=== PATIENT | female | born 2005 | race Caucasian/White ===

== ENCOUNTER 2024-08-08 17:37 | Emergency (ER) | payer MEDICAID ==
[~2024-08-08] VITALS: Ht 167.6 cm; Wt 61.4 kg
[2024-08-08 17:41] VITALS: TEMP 98
[2024-08-08 18:58] LABS: BILIRUBIN,URINE NEGATIVE (Neg); CLARITY,URINE CLEAR (Clear); COLOR,URINE YELLOW (Yellow); GLUCOSE, URINE NEGATIVE (Neg); KETONES,URINE TRACE mg/dl (Neg); LEUKOCYTE ESTERASE ,URINE NEGATIVE (Neg); NITRITES, URINE NEGATIVE (Neg); OCCULT BLOOD,URINE NEGATIVE (Neg); PH,URINE 5.5 (4.8-8.0); PROTEIN,URINE NEGATIVE (Neg); URINE HCG NEGATIVE (NEG); UROBILINOGEN,URINE 0.2 E.U/dL (0.2-1.0)
[2024-08-08 19:01] LABS: UA COLLECTION TYPE CLN CATCH MIDSTREAM
--- NOTE | 2024-08-08 22:19 | Physician Documentation ---
History of Present Illness ~ Chief Complaint: Abdominal Pain Stated Complaint: ABDOMINAL PAIN Time Seen by MD: 21:42 OK to notify your PCP?: Yes Source: patient Exam Limitations: no limitations HPI 19-year-old female with complaints of pelvic pain starting proximally 2 days ago. Patient has had 1 other episode of this a couple of months ago lasting again 2 days. Patient states at 1st she thought it could be gas or bloating she tried taking Pepcid and Tums without much relief yesterday. The last episode also lasted only 2 days. Patient's only STI history as she had chlamydia once w hen she was split up from her boyfriend who she is currently with now and monogamous. Patient was treated and tested following treatment. Patient had a hormonal IUD recently removed by [facility] about 2 months ago. Her previous episode of similar pain was prior to IUD being removed. Patient denies any dysuria urgency or frequency but does state that the pelvic pain does occur with urination. Patient denies any back pain, vaginal discharge, but does state that for several months she has had pelvic pain during intercourse. Patient denies any history of PID. Timing/Duration: days Quality/Severity: moderate Pain Location: suprapubic Activities at Onset: spontaneous Prior Genitourinary Problem: none Sexual [place] History: single partner Last Menstrual Period: July 27, 2024 ?: no Modifying Factors: Improves with: nothing Associated Symptoms: dysuria, frequency, hematuria, urgency, vaginal bleeding, vaginal discharge Vaginal Discharge: none Lesions: Denies: none, vesicles, ulcer(s), pustules, papules, other Pruritis: none Amount of Bleeding: none Quality of Bleeding: bright red History Of: STD Medication Reconciliation Allergies: Coded Allergies: No Known Allergies (Unverified , 08/08/24) Past Medical History Past Surgical History: no surgical history Review of Systems All Other Systems at this time: Reviewed and Negative Female Genitalia: Reports: pelvic pain Physical Exam Vital Signs: RN Vital Signs have been reviewed: Yes, Temperature: 98.0, Heart Rate: 67, Respiratory Rate: 15, BP: 120/87, Pulse Oximetry: 98, Weight: 61.360 Oxygen Flow Rate: 0 General Appearance: alert, WD/WN, no apparent distress Respiratory: lungs clear, normal breath sounds, no respiratory distress Chest: no accessory muscle use, chest non-tender Cardiovascular: normal peripheral pulses, regular rate, rhythm, no edema Gastrointestinal: bowels sounds present, rigidity Gastrointestinal Tender to palpate pelvic area more on the left side than the right no masses felt Neurologic: oriented x4, package maker II-XII nml as tested Progress Results/Orders Results/Orders Orders - CAREY REID NP Hcg, Ur Ql (08/08/24 21:56) Urinalysis, Cult If Indicated (08/08/24 21:56) Ultrasound Pelvis W/Orwo Dplx (08/08/24 21:56) Chlam/Gc Amp Ur (08/08/24 21:56) Completed Orders - CAREY ERID NP Ondansetron Disint. Tablet (Zofran Odt T (08/08/24 22:00) Hydrocodone/Apap 10/325 ([place] 10/325mg (08/08/24 22:00) Medications Received in ER Medications (Trade) Dose Ordered Sig/Yon Route PRN Reason Start Time Stop Time Status Last Admin Dose Admin (Zofran ODT tablet) 4 mg ONCE ONCE PO 08/08/24 22:00 08/08/24 22:01 DC 08/08/24 22:28 4 MG ([place] 10/325mg tab) 1 tab ONCE ONCE PO 08/08/24 22:00 08/08/24 22:01 DC 08/08/24 22:28 1 TAB Vital Signs 08/08/24 08/08/24 17:41 21:49 Temp 98.0 Pulse 82 67 Resp 15 15 B/P (MAP) 123/76 120/87 (98) Pulse Ox 98 98 O2 Flow Rate 0 Laboratory Tests Test 08/08/24 17:48 Urine Specimen Description Cln catch midstream Urine Color Yellow Urine Clarity Clear Urine pH 5.5 Urine Specific [place] >=1.030 Urine Protein Negative Urine Glucose (UA) Negative Urine Ketones Trace H Urine Occult Blood Negative Urine Nitrite Negative Urine Bilirubin Negative Urine Urobilinogen 0.2 Urine Leukocyte Esterase Negative Urine Culture Indicated Not ind Volume Urine Centrifuged 10 ml Urine HCG, Qualitative Negative Urine Comment Medical Decision Making Genital Diff Dx:Considerations: Include: Constipation, Dsymenorrhea, Ectopic , Hormonal, Intrauterine , Menorrhagia, PID, , UTI, Vaginitis, Vaginitis(osis)-Bacterial Additional Comment Preliminary ultrasound shows no free fluid no obvious ovarian cyst with good blood flow essentially unremarkable. We will treat patient for PID with TIA history and pelvic pain with intercourse Departure Time of Disposition: 23:10 Impression: Primary Impression: PID (acute pelvic inflammatory disease) Condition: Stable Discharge Instructions: Pelvic Inflammatory Disease, Pelvic Pain, Female, [id number] Additional Instructions: Ultrasound was unremarkable for any significant findings take antibiotics for full course and follow up with [facility] Referrals: NO PRIMARY CARE PROVIDER (PCP) Prescriptions Ibuprofen (Ibu) 800 Mg Tablet 1 TAB PO Q8H for 7 Days, #21 TAB 0 Refills Prov: CAREY REID NP 08/08/24 Doxycycline Hyclate (Doxycycline Hyclate) 100 Mg Capsule 1 CAP PO Q12H for 14 Days, #28 CAP Prov: CAREY REID MARKETING RECRUITER 08/08/24 Metronidazole* (Flagyl*) 500 Mg Tablet 1 TAB PO Q12H for 14 Days, #28 TAB Prov: CAREY REID MARKETING RECRUITER 08/08/24 Education Educated: Patient Educated regarding: diagnosis, treatment, need for follow up Signature Scribe Signature: No scribe Attestation: The note accurately reflects work and decisions made by me.Carey Reid - UMAIR 08/08/24 22:19 CAREY REID NP August 08, 2024 22:19
[2024-08-08] MEDS: ondansetron 4mg rapidly disintigrating tab PO ONE (22:28)
[2024-08-08] MEDS: HYDROcodone/acetaminophen 10/325mg tab PO ONE (22:28)
[2024-08-08] MEDS ORDERED: DOXY-1 PO (23:13)
[2024-08-08] MEDS ORDERED: IBUP-864 PO (23:13)
[2024-08-08] MEDS ORDERED: METR-159 PO (23:13)
[2024-08-08 23:30] VITALS: BP 112/65; PULSE 65; RESP 15; O2SAT 99
--- NOTE | 2024-08-08 23:30 | RADIOLOGY REPORT ---
INDICATION: ABD PAIN TECHNIQUE: Multiple real-time grayscale transabdominal sonographic images along with color and duplex Doppler of the uterus and ovaries were obtained. COMPARISON: None Findings/ IMPRESSION: The uterus measures 7.7 x 3.4 x 4.2 cm. The uterus is retroverted. Endometrium measures 0.4 cm. The right ovary measures 3.1 x 2.1 x 3.4 cm. The left ovary measures 3.3 x 2.5 x 2.1 cm. There is color D oppler flow bilaterally. No free fluid in the pelvic cul-de-sac.
[2024-08-08] MEDS: DOXYCYCLINE 100MG CAPSULE PO STA (23:34)
[2024-08-08] MEDS: metroNIDAZOLE 500mg tablet PO ONE (23:35)
== END 2024-08-08 23:42 | disposition home or self-care (01) ==
LOC: ER 17:40
DX: N73.0 Acute parametritis and pelvic cellulitis (principal)
CPT/HCPCS: 36415; 76830; 76856; 81003; 81025; 87491; 93976; 99284